=== PATIENT | female | born 1990 | race Caucasian/White ===

== ENCOUNTER → 2018-07-23 | Outpatient (CLI) | payer BC ==
--- NOTE | 2018-07-23 12:53 | KCIC ---
MRI Lumbar Spine without contrast History: Low back pain, spina bifida occulta Technique: Multiplanar, multi sequential noncontrast MR imaging was performed of the lumbar spine. Comparison: None Findings: Lumbar vertebral body stature and AP alignment are maintained. Intervertebral disc spaces are adequate. There is no significant marrow edema. Conus terminates at L1. There is no focal posterior disc abnormality of the lumbar spine. There is no lumbar spinal stenosis or neural foramina compromise at any level. There is a T2 hyperintense lesion of the visualized left iliac bone about 1.8 cm transverse by 1.5 cm AP, isointense adjacent marrow on T1 sequence. Impression: 1. No significant abnormality is identified of the lumbar spine. 2. Not fully included, there is nonspecific T2 hyperintense lesion of the visualized left iliac bone, better evaluated with dedicated pelvis MR imaging. Electronically signed by: Raul Cisse MD (07/23/2018 12:50 PM) [id number]
== END | disposition home or self-care (01) ==
LOC: KCIC MRI 12:17
PROVIDERS: ATTEND Registered Nurse
DX: M89.8X8 Other specified disorders of bone, other site (principal); M24.7 Protrusio acetabuli; Q76.0 Spina bifida occulta
CPT/HCPCS: 72148

== ENCOUNTER → 2018-08-10 | Outpatient (CLI) | payer BC ==
--- NOTE | 2018-08-10 11:59 | KCIC ---
Examination: MRI of the pelvis without contrast HISTORY: History of pelvic bone lesion COMPARISON: None available Technique: Multiplanar, sequence MR imaging of the pelvis were performed without contrast. Coronal and sagittal reformats are performed. FINDINGS: The bilateral femoral heads within the acetabulum. There is a 3.0 x 2.4 cm high T2 signal and intermediate T1 signal lesion identified in the posterior left iliac bone without evidence of aggressive features. The attachment of the bilateral hamstring tendon to the ischial tuberosity, attachment of the gluteal tendons to the greater trochanter, attachment of the iliopsoas tendon to the lesser trochanter and the attachment of the rectus femoris tendon to the anterior inferior iliac spine grossly appears intact. There is mild increased T2 signal identified in the left quadratus femoris muscle in the ischiofemoral space likely edema. Urinary bladder is mildly distended. IMPRESSION: 1. Increased T2 signal identified in the left quadratus femoris muscle in the left ischiofemoral space likely edema secondary to ischiofemoral impingement. 2. A 3 cm high T2 signal lesion identified in the posterior left iliac bone likely a benign cyst. Follow-up MRI in 3-6 months can be considered to document stability. Electronically signed by: Wicho Abreu MD (08/10/2018 11:56 AM) [id number]
== END | disposition home or self-care (01) ==
LOC: KCIC MRI 10:14
PROVIDERS: ATTEND Registered Nurse
DX: M89.8X8 Other specified disorders of bone, other site (principal); N32.89 Other specified disorders of bladder
CPT/HCPCS: 72195